=== PATIENT | female | born 1940 | race Caucasian/White ===

== ENCOUNTER 2016-08-29 23:45 | Inpatient (IN) | payer MEDICARE, OTHER ==
[2016-08-26 16:47] LABS: ASCORBIC ACID (UR NOT ORDER) 40 (NEG); BILIRUBIN, URINE NEGATIVE (NEG); KETONE, URINE NEGATIVE (NEG)
--- NOTE | ~2016-08-29 | HP ---
History And Physical [id number] [place]. [address] NAME: RAFA KURTZ : 44 STATUS : ADM Fredrick PAT#: [id number] AGE: 76 ADM/REG DATE : 08/29/16 MR#: [id number] REPORT SERV DATE: 08/30/16 DICTATED BY: MARSHAL HALL DATE: 08/30/16 REPORT STATUS : Draft TRANSCRIBED BY: MODZee DATE: 08/30/16 DATE OF ADMISSION: 08/29/2016 CHIEF COMPLAINT: Shortness of breath and bladder infection. HISTORY OF PRESENT ILLNESS: This is a 76-year-old female with a history of chronic respiratory failure, COPD, obstructive sleep apnea, coronary artery disease and other medical problems, who presents to the emergency room at [facility]. History is obtained from the patient, her daughter and son who are at bedside, and reviewing data available on the [employer] system. According to available data, Mrs. Kurtz was recently admitted and discharged from [facility] on last Friday. Since then, she had been home, became progressively more short of breath, had an intractable cough, and she called her primary care physician today and was asked to go to the emergency room here for evaluation. In the emergency room, she was found to have ESBL Klebsiella urinary tract infection sensitive only to amikacin, meropenem, and Zosyn. Hospitalist Service was asked to admit her for further evaluation and treatment. At the time of my evaluation, she denied any chest pain or palpitations. She had no orthopnea. She had a cough, which was essentially nonproductive. No hemoptysis, night sweats, or weight loss. She has not had any recent falls or loss of consciousness. No fevers or chills recently. No nausea, vomiting, diarrhea. No history of recent hematemesis, hematochezia, or hematuria. PAST MEDICAL HISTORY: Significant for history of coronary artery disease with pacemaker placement, history of COPD, chronic respiratory failure, obstructive sleep apnea on BiPAP therapy. She has history of diabetes mellitus, hypothyroidism, and no history of congestive heart failure according to recent echocardiogram read by Dr. Raghu Christian. She had normal ejection fraction. No diastolic dysfunction. No pulmonary hypertension. SOCIAL HISTORY: She does not smoke, drink, or use recreational drugs. FAMILY HISTORY: Noncontributory. MEDICATIONS: At home were reviewed by me in the chart today and reordered by me. REVIEW OF SYSTEMS: As in history of present illness, all other systems were reviewed in detail and quite unremarkable. PHYSICAL EXAMINATION: GENERAL: This is a pleasant 76-year-old, in mild distress due to her shortness of breath. HEENT: Head appears to be atraumatic, normocephalic. She is alert, awake, oriented to time, place, and person. Her pupils are equal, reacting to light and accommodating. History And Physical [address] [address] NAME: RAFA KURTZ : 42 STATUS : ADM Fredrick PAT#: [id number] AGE: 76 ADM/REG DATE : 08/29/16 MR#: [id number] REPORT SERV DATE: 08/30/16 DICTATED BY: MARSHAL HALL DATE: 08/30/16 REPORT STATUS : Draft TRANSCRIBED BY: SONIDO DATE: 08/30/16 External ocular muscles are intact. Membranes are moist and pink. Sclerae are nonicteric. NECK: Supple with no jugular venous distention, lymphadenopathy, or thyromegaly. LUNGS: Clear to auscultation with no wheezes, rubs, or crackles. HEART: Heart sounds were regular with no murmurs, rubs, or gallops. ABDOMEN: Soft, nontender. Bowel sounds are present. EXTREMITIES: Showed no cyanosis, clubbing, or edema. NEUROLOGIC: Grossly intact. No focal sensory or motor deficits. Higher functions appeared intact. VITAL SIGNS: Her vital signs today showed a temperature of 98.8, pulse 68, respirations 30- 35 a minute, blood pressure was 162/44, oxygen saturations were 95% breathing 4 L of oxygen via nasal cannula. LABORATORY DATA: Reviewed on the [employer] system showed a pH of 7.49 on arterial blood gas, pCO2 was 40, PO2 was 72 and bicarb was 29.8, this was on 4 L of oxygen via nasal cannula. A CBC was essentially within normal limits, but had a blood glucose of 305. Alkaline phosphatase was 146 today. ALT and AST were within normal limits. Troponin was 0.02 and BNP was 86.6. CBC showed a normal white blood cell count of 6900, hemoglobin was 11.1, hematocrit 34.4, and platelet count was down to 87,000. Urinalysis showed large leukocyte esterase, nitrite was negative. There were 130 wbc's and many bacteria. Films of the chest x-ray were reviewed by me on the PACS today and interpreted by me. There are no lobar consolidations or pleural effusion seen today. A 12-lead EKG done in the emergency room was reviewed and interpreted by me. There is paced rhythm at a rate of [address]- T changes. There is QTc prolongation. IMPRESSION: 1. Dyspnea. 2. Urinary tract infection with Klebsiella ESBL. 3. Hypertension. 4. Diabetes mellitus with hyperglycemia. 5. Hypothyroidism. 6. Chronic obstructive pulmonary disease with exacerbation. 7. Obstructive sleep apnea on BiPAP therapy. 8. Coronary artery disease with pacemaker placement. 9. Hypothyroidism. PLAN: We will admit Mrs. Kurtz to the Hospitalist Service with defensive monitoring for a 24-hour observation. After cultures are drawn, we will start her on empiric IV antibiotics. Urine sensitivities done on showed ESBL Klebsiella pneumonia sensitive to only amikacin, meropenem, and Zosyn. We will have to admit her for intravenous IV antibiotics at this time. We will go ahead and consult Infectious Disease to see her in the morning. Meanwhile, we will start her on NovoLog insulin given subcutaneously per sliding scale for blood sugar control. Check her A1c. We will also check her TSH and control replacement therapy. She will be on IV fluids for volume resuscitation while here as well. We will start her back on her home medications for blood pressure control and provide hydralazine intravenously on an as-needed basis. For her dyspnea and chronic respiratory failure along with COPD exacerbation, we will start her on bronchodilator treatments and continue supplemental oxygen therapy. She has no congestive heart failure per recent echocardiogram. History And Physical [address] [address] NAME: RAFA KURTZ : 44 STATUS : ADM Fredrick PAT#: [id number] AGE: 76 ADM/REG DATE : 08/29/16 MR#: [id number] REPORT SERV DATE: 08/30/16 DICTATED BY: MARSHAL HALL DATE: 08/30/16 REPORT STATUS : Draft TRANSCRIBED BY: MODL DATE: 08/30/16 No evidence of pulmonary hypertension. We will also place her on unfractionated heparin for DVT prophylaxis while here. I have discussed the above plans with the patient and her family. Questions were answered and they are agreeable to the above recommendations. Hospitalist Service will be following her during her stay here. KAMILLA Marshal Hall M.D. / [id number] CC: MD Ney Rodriguez II, M.D.
--- NOTE | ~2016-08-29 | DS ---
Discharge Summary [facility] [address] [place]. [address] NAME: RAFA KURTZ : 44 STATUS : ADM IN [facility]#: [id number] AGE: 76 ADM/REG DATE : 08/30/16 MR#: [id number] REPORT SERV DATE: 09/03/16 DICTATED BY: MICHAEL FRIAS II DATE: 09/02/16 REPORT STATUS : Draft TRANSCRIBED BY: MODL DATE: 09/02/16 ADMISSION DATE: 08/29/2016 DISCHARGE DATE: 09/02/2016 DISCHARGE DIAGNOSES: 1. Recurrent urinary tract infection with multidrug resistant Klebsiella pneumonia and Pseudomonas. 2. Vaginal candidiasis. 3. Chronic obstructive pulmonary disease, O2 dependent on 2 L at home. 4. Obstructive sleep apnea, on home BiPAP. 5. Diabetes mellitus type 2. 6. Chronic systolic congestive heart failure. 7. Chronic pain and debility. BRIEF HISTORY OF PRESENT ILLNESS: The patient is a 76-year-old female with the above history, who presented to [facility] due to shortness of breath and a bladder infection. For detailed history and physical examination, please see Dr. Fan's note from 08/29/2016. On admission, the patient actually had a prior urine culture from 08/26/2016 which showed Klebsiella pneumonia, ESBL, and Pseudomonas with only IV options, so she was subsequently admitted for treatment of UTI. For detailed history and physical examination, please see Dr. Fan's note from 08/29/2016. HOSPITAL COURSE: On admission, her UA actually showed large leukocyte esterase and 130 white blood cells with many bacteria. She did not however appear septic with a white count of only 6.9, afebrile, and vitals were fairly unremarkable. She was somewhat short of breath, but on her home rate of 2 L nasal cannula lungs sounded clear and chest x-ray showed chronic interstitial lung disease plus or minus a component of mild pulmonary edema. BNP was only 86 and she was continued on her home medications. She was initially started on Zosyn, but the Pseudomonas was intermediately sensitive to Zosyn, so meropenem was started. The patient's urine culture from 08/30/2016 actually came back with just Klebsiella pneumonia and no Pseudomonas, only sensitive to meropenem and amikacin. The patient was discussed with Dr. Fuller with Infectious Disease and given her multiple prior recurrences with the same organism she may have some component of colonization though no structural abnormality noted on prior CT scans. Given multiple recurrences we decided on a prolonged course of ertapenem to complete 10 days. Otherwise, she is at her baseline. Her other chronic medical conditions are stable and she is continued on her home medications. She is otherwise fairly debilitated and had been planning on going to [facility]. PT amelia showed she will benefit from SNF, so Case Management is currently arranging subacute rehab at [facility]. She will finish out six more days of ertapenem. DISCHARGE MEDICATIONS: 1. Aspirin 81 mg p.o. daily. 2. Atorvastatin 10 mg p.o. q.h.s. 3. Tessalon 200 mg p.o. t.i.d. p.r.n. cough. 4. Coreg 6.25 mg p.o. b.i.d. 5. Caltrate 600 mg p.o. daily. Discharge Summary [address] [address] NAME: RAFA KURTZ : 44 STATUS : ADM IN [facility]#: [id number] AGE: 76 ADM/REG DATE : 08/30/16 MR#: [id number] REPORT SERV DATE: 09/03/16 DICTATED BY: MICHAEL FRIAS II DATE: 09/02/16 REPORT STATUS : Draft TRANSCRIBED BY: SONIDO DATE: 09/02/16 6. Vitamin D3, 5000 units p.o. daily. 7. Neurontin 600 mg p.o. q.h.s. 8. Levemir 65 units subcu b.i.d. 9. NovoLog aspart level 3 sliding scale plus 20 units subcu t.i.d. a.c. 10.Synthroid 75 mcg p.o. daily. 11.Lisinopril 20 mg p.o. daily. 12.Magnesium oxide 400 mg p.o. daily. 13.Super B complex one tablet p.o. daily. 14.K-Dur 20 mEq p.o. daily. 15.Zoloft 100 mg p.o. daily. 16.Tocopherol 400 units p.o. daily. 17.Desyrel 50 mg p.o. q.h.s. 18.Macrodantin 50 mg p.o. daily. 19.Ativan 0.5 mg p.o. b.i.d. p.r.n. anxiety. 20.Phenergan 12.5 mg p.o. q.6 hours p.r.n. nausea. 21.Lasix 40 mg p.o. b.i.d. 22.Percocet 7.5/325 mg p.o. t.i.d. p.r.n. pain. 23.Cinnamon bark oral supplement. 24.PreserVision cap b.i.d. 25.Biotin 10 mg p.o. daily. 26.Ertapenem 1 g IV x6 more days. DISCHARGE INSTRUCTIONS: The patient will be discharged to [facility] for further management. DICTATED BY: Michael Frias II, MD JEG/MODZee Michael Frias II, MD / [id number] CC: MD Ney Rodriguez II, M.D.
--- NOTE | ~2016-08-29 | DS ---
Discharge Summary [address] [place]. [address] NAME: RAFA KURTZ : 44 STATUS : ADM IN [facility]#: [id number] AGE: 76 ADM/REG DATE : 08/30/16 MR#: [id number] REPORT SERV DATE: 09/03/16 DICTATED BY: PK DE LA ROSA DATE: 09/03/16 REPORT STATUS : Draft TRANSCRIBED BY: MODL DATE: 09/03/16 ADMISSION DATE: 08/30/2016 DISCHARGE DATE: 09/03/2016 DISCHARGE DIAGNOSES: 1. Urinary tract infection, positive Klebsiella pneumoniae and Pseudomonas. 2. Vaginal candidiasis. 3. Chronic obstructive pulmonary disease, O2 dependent 2 L at baseline. 4. Diabetes mellitus type 2, stable. 5. Chronic systolic congestive heart failure. 6. Chronic pain and debility. COURSE AT HOSPITAL STAY: Please refer to history and physical dictated on 08/29/[address] Fan for complete admission details, as well as initial discharge summary by Dr. Molina on 09/02/2016. This patient is a 76-year-old female, who presented with the above history. The patient stated upon admission that she was having increased shortness of breath and believed to have a bladder infection. As noted above, the patient's urine was positive Klebsiella pneumoniae and Pseudomonas. The patient was believed to be discharged on 09/02/2016 due to insurance. Due to the patient's insurance, discharge was delayed till 09/03/2016. Please refer to discharge summary by Dr. Humphrey Molina regarding details. DISCHARGE MEDICATIONS: 1. Aspirin 81 mg one p.o. daily. 2. Lipitor 10 mg one p.o. at bedtime. 3. Tessalon Perles 200 mg p.o. three times daily. 4. Coreg 6.25 mg p.o. twice daily. 5. Caltrate 600 mg plus vitamin D 600 mg p.o. daily. 6. Vitamin D3 5000 units p.o. every evening. 7. Neurontin 300 mg one p.o. at bedtime. 8. Levemir 65 units subcutaneous twice daily. 9. NovoLog 20 units subcutaneous with meals. 10.Synthroid 75 mcg tablet p.o. daily. 11.Lisinopril 20 mg one p.o. daily. 12.Magnesium oxide 400 mg one p.o. daily. 13.B complex vitamin one tab every morning. 14.Potassium 20 mEq p.o. daily. 15.Zoloft 100 mg one p.o. daily. 16.Vitamin E 400 units p.o. every morning. 17.Trazodone 50 mg one p.o. at bedtime. 18.Macrodantin 50 mg one p.o. daily. 19.Ativan 0.5 mg p.o. twice daily p.r.n. for anxiety. 20.Phenergan 12.5 mg p.o. every six hours p.r.n. for nausea. Discharge Summary [address] [place]. [address] NAME: RAFA KURTZ : 44 STATUS : ADM IN [facility]#: [id number] AGE: 76 ADM/REG DATE : 08/30/16 MR#: [id number] REPORT SERV DATE: 09/03/16 DICTATED BY: PK DE LA ROSA DATE: 09/03/16 REPORT STATUS : Draft TRANSCRIBED BY: SONIDO DATE: 09/03/16 21.Lasix 40 mg one p.o. twice daily. 22.Percocet 7.5/325 p.o. three times daily p.r.n. 23.Cinnamon oral supplement 1000 mg p.o. every morning. 24.Vitamin A, vitamin C, vitamin E, zinc, copper tab one p.o. every day. 25.Biotin 10 mg one p.o. daily. This discharge took greater than 30 minutes due to working with patient regarding medications and case management associate and staff. DICTATED BY: Pk De La Rosa NP [facility] Pk De La Rosa NP / [id number] CC: Susanna Pugh M.D.
[2016-08-29 23:34] LABS: ALLENS TEST Pos; DEVICE NC; HCO3 (ACTUAL BICARBONATE) 29.8 MEQ/L (23-27); INSTRUMENT SERIAL # 8087; OPERATOR ID 17589; PCO2 (CO2 TENSION) 40 MMHG (35-45); PO2 (O2 TENSION) 72 MMHG (79-93); SAMPLE Arterial; pH 7.49 (7.37-7.43)
[~2016-08-29 23:45] MED LIST: ACETSUP650 PR; AMB10 PO; APIDRA PO; ASAB PO; ATV.5 PEG; BISR PR; BUM1 PEG; CALCIUM OTC PO; CALCIUM PO; CEFT5 PO; CELEBREX2 PO; CIP2 PO; CONSTULOSE PEG; COREG12 PO; COREG6 PEG; COREG6 PO; DUONEB INH; DURA100 TOP; ENDOCET1 TA3 PO; ESTRACE VAG0.1 MG/GM V; ESTRACE VAGIN42.5 GM TOP; HEPA50006 SC; HUMALOG SC; KCL20UDL PEG; KDUR20 PO; KLOR-CON M2020 MEQ PO; L40 PO; L80 PO; LANTUS SC; LEVOTHYROXIN75 MCG PO; LEXAPRO10 PO; LINZESS 290 M290 MCG PO; LIQUITEARS OPH; LOFIBRA134 MG PO; LORT7 PO; LORTAB10 PO; MAGNESIUM OXIDE PEG; MAGOX4 PO; MICRO-K8 MEQ PO; MIRALAXPKT PEG; MIRALAXPKT PO; MOMUD PEG; MSCONT15 PO; MULTIVITAMI1 PO; NEUR300 PEG; NEUR300 PO; NEUR400 PO; NEUR600 PO; NOVOLOG SC; NOVOLOGMIX SC; NOVOPEN SC; OS500+D PO; PERCOCET1 TA2 PO; PERCOCET1 TA4 PO; PREDFORTE OPH; PRESER VISION; PRESERVISION A1 EAC1 PO; PRILO PO; PRIN10 PO; PRIN20 PEG; PRIN20 PO; PROBIOTIC PO; PROTONIX PEG; PROVENTSOL INH; REGL PEG; ROCEPH IV/IM; SEROQUEL25 PEG; SYN075 PEG; SYN075 PO; TEARS NATURA OPH; THERA MULTI1 ML PEG; TRAZ50 PEG; TRAZ50 PO; TRICOR145 PO; UNABLE TO RECALL; VITAMIN B PO; VITAMIN C OTC PO; VITAMIN C PO; VITAMIN C100 MG PO; VITAMIN C500 M3 PO; VITAMIN D OTC PO; VITAMIN E OTC PO; VITAMIN E PO; ZOCOR20 PO; ZOFRAN ODT4 MG SL; ZOL100 PEG; ZOL100 PO; [UNRECOGNIZED DRUG - OTHER] PO
[2016-08-30 00:16] LABS: BASOPHILS 0.3 %; BASOPHILS ABSOLUTE 0.02 10/3/uL (0.0-0.16); EOSINOPHILS ABSOLUTE 0.28 10/3/uL (0.0-0.53); ER CBC TAT 0 Hrs 00 Mins; HEMATOCRIT 34.4 % (36.0-48.0); HEMOGLOBIN 11.1 g/dL (12.0-16.0); IMMATURE GRANULOCYTES 0.6 %; IMMATURE GRANULOCYTES ABSOLUTE 0.04 10/3/uL (0.0-0.11); LYMPHOCYTES 29.1 %; LYMPHOCYTES ABSOLUTE 2.02 10/3/uL (0.67-4.30); MEAN CORPUS HGB CONC 32.3 g/dL (32.0-36.0); MEAN CORPUSCULAR HEMOGLOB 27.5 pg (26.0-34.0); MEAN CORPUSCULAR VOLUME 85.1 fL (80-100); MEAN PLATELET VOLUME 11.4 fL (9.2-13.0); MONOCYTES 7.2 %; NEUTROPHILS 58.8 %; NEUTROPHILS ABSOLUTE 4.08 10/3/uL (2.02-8.40); PLATELET COUNT 87 10/3/uL (150-400); RBC DISTRIBUTION WIDTH 15.6 % (12.0-16.0); RED CELL COUNT 4.04 10/6/uL (4.0-5.6); WHITE BLOOD CELLS 6.9 10/3/uL (4.5-10.5)
[2016-08-30 00:17] LABS: MANUAL DIFF NO %
[2016-08-30 00:23] LABS: INTERNATIONAL NORMAL RATI 1.1 UNITS (-); PROTIME (NOT ORD) 14.5 SEC (12.0-14.5)
[2016-08-30 00:32] LABS: ALBUMIN 2.9 G/DL (3.5-5.0); BUN (BLOOD UREA NITROGEN) 15 MG/DL (6-23); CHEST PAIN PROFILE TAT 0 Hrs 00 Mins; CHLORIDE, SERUM 100 MMOL/L (96-112); CREATININE 0.82 MG/DL (0.55-1.02); DIRECT BILIRUBIN 0.1 MG/DL (0.0-0.4); GFR AFRICAN AMERICAN 82 ML/MIN (>=60); GFR NON AFRICAN AMERICAN 70 ML/MIN (>=60); GLUCOSE, SERUM 305 MG/DL (60-99); INDIRECT BILIRUBIN(NOT ORDER) 0.4 MG/DL (0.1-0.9); POTASSIUM, SERUM 3.9 MMOL/L (3.5-5.3); SGOT(AST) 17 U/L (5-40); SGPT(ALT) 20 U/L (5-65); SODIUM, SERUM 140 MMOL/L (135-148); TOTAL BILIRUBIN 0.5 MG/DL (0-1.2); TOTAL PROTEIN 6.6 G/DL (6.0-8.5); TROPONIN I 0.02 NG/ML (<0.05)
[2016-08-30 00:35] LABS: ALKALINE PHOSPHATASE 146 U/L (45-117); CO2 (CARBON DIOXIDE) 34 MMOL/L (24-34)
[2016-08-30 02:13] LABS: ASCORBIC ACID (UR NOT ORDER) 40 (NEG); BILIRUBIN, URINE NEGATIVE (NEG); ER URINALYSIS TAT 0 Hrs 15 Mins; KETONE, URINE NEGATIVE (NEG); LEUKOCYTE ESTERASE(NOT OR LARGE (NEG); NITRITE (URINE) NEG (NEG); WBC (NOT ORDERED) (RFLEX) 130 (0-5)
[2016-08-30] MEDS ORDERED: L40 PO (02:22)
[2016-08-30] MEDS ORDERED: SYN075 PO (02:22)
[2016-08-30] MEDS ORDERED: ZESTRIL20 MG PO (02:22)
[2016-08-30] MEDS ORDERED: COREG6 PO (02:22)
[2016-08-30] MEDS ORDERED: KDUR20 PO (02:23)
[2016-08-30] MEDS ORDERED: MAGOX4 PO (02:23)
[2016-08-30] MEDS ORDERED: ZOL100 PO (02:23)
[2016-08-30] MEDS ORDERED: NEUR300 PO (02:23)
[2016-08-30] MEDS ORDERED: LIPITOR10 PO (02:24)
[2016-08-30] MEDS ORDERED: INSNOV7030 SC (02:24)
[2016-08-30] MEDS ORDERED: TRAZ50 PO (02:25)
[2016-08-30] MEDS ORDERED: PERCOCET 7.5/321 TAB PO (02:27)
[2016-08-30] MEDS ORDERED: HALF81 PO (02:27)
[2016-08-30] MEDS ORDERED: VITE PO (02:27)
[2016-08-30] MEDS ORDERED: BIOTIN10 MG PO (02:28)
[2016-08-30] MEDS ORDERED: CINNAMONPO PO (02:28)
[2016-08-30] MEDS ORDERED: SUPER B COMP PO (02:28)
[2016-08-30] MEDS ORDERED: PRESERVISION A1 EACH PO (02:28)
[2016-08-30] MEDS ORDERED: CALTRA600D PO (02:28)
[2016-08-30] MEDS ORDERED: VITAMIN D31000 UNIT PO (02:28)
[2016-08-30] MEDS ORDERED: LEVEMIR SC (02:45)
[2016-08-30] MEDS ORDERED: APIDRA SC (02:46)
[2016-08-30] MEDS ORDERED: ATV.5 PO (02:51)
[2016-08-30] MEDS ORDERED: *UNABLE3 (02:54)
[2016-08-30 06:19] LABS: BASOPHILS 0.3 %; BASOPHILS ABSOLUTE 0.02 10/3/uL (0.0-0.16); EOSINOPHILS 4.3 %; EOSINOPHILS ABSOLUTE 0.31 10/3/uL (0.0-0.53); HEMATOCRIT 34.2 % (36.0-48.0); HEMOGLOBIN 11.1 g/dL (12.0-16.0); IMMATURE GRANULOCYTES 0.4 %; IMMATURE GRANULOCYTES ABSOLUTE 0.03 10/3/uL (0.0-0.11); LYMPHOCYTES 35.9 %; LYMPHOCYTES ABSOLUTE 2.57 10/3/uL (0.67-4.30); MEAN CORPUS HGB CONC 32.5 g/dL (32.0-36.0); MEAN CORPUSCULAR HEMOGLOB 27.7 pg (26.0-34.0); MEAN CORPUSCULAR VOLUME 85.3 fL (80-100); MEAN PLATELET VOLUME 11.5 fL (9.2-13.0); MONOCYTES 7.3 %; MONOCYTES ABSOLUTE 0.52 10/3/uL (0.21-1.20); NEUTROPHILS 51.8 %; NEUTROPHILS ABSOLUTE 3.71 10/3/uL (2.02-8.40); PLATELET COUNT 95 10/3/uL (150-400); RBC DISTRIBUTION WIDTH 15.8 % (12.0-16.0); RED CELL COUNT 4.01 10/6/uL (4.0-5.6); WHITE BLOOD CELLS 7.2 10/3/uL (4.5-10.5)
[2016-08-30 06:24] LABS: MANUAL DIFF NO %
[2016-08-30 06:36] LABS: BUN (BLOOD UREA NITROGEN) 15 MG/DL (6-23); CALCIUM, SERUM 9.5 MG/DL (8.5-10.4); CHLORIDE, SERUM 104 MMOL/L (96-112); CO2 (CARBON DIOXIDE) 31 MMOL/L (24-34); CREATININE 0.83 MG/DL (0.55-1.02); GFR AFRICAN AMERICAN 81 ML/MIN (>=60); GFR NON AFRICAN AMERICAN 69 ML/MIN (>=60); GLUCOSE, SERUM 246 MG/DL (60-99); POTASSIUM, SERUM 3.9 MMOL/L (3.5-5.3); SODIUM, SERUM 140 MMOL/L (135-148)
[2016-08-30 06:37] LABS: PHOSPHORUS, SERUM 3.1 MG/DL (2.5-4.5)
[2016-08-30] MEDS ORDERED: LYRICA75 PO (08:38)
[2016-08-30] MEDS ORDERED: MACRO50B PO (08:39)
[2016-08-30] MEDS ORDERED: PRESERVISION A1 EAC1 PO (08:40)
[2016-08-30] MEDS ORDERED: MIRALAX POWDER1 PKT PO (08:40)
[2016-08-31 04:53] LABS: BASOPHILS 0.4 %; BASOPHILS ABSOLUTE 0.02 10/3/uL (0.0-0.16); EOSINOPHILS 5.1 %; EOSINOPHILS ABSOLUTE 0.29 10/3/uL (0.0-0.53); HEMATOCRIT 35.2 % (36.0-48.0); HEMOGLOBIN 11.4 g/dL (12.0-16.0); IMMATURE GRANULOCYTES 0.4 %; IMMATURE GRANULOCYTES ABSOLUTE 0.02 10/3/uL (0.0-0.11); LYMPHOCYTES 34.7 %; LYMPHOCYTES ABSOLUTE 1.98 10/3/uL (0.67-4.30); MANUAL DIFF NO %; MEAN CORPUS HGB CONC 32.4 g/dL (32.0-36.0); MEAN CORPUSCULAR HEMOGLOB 28.1 pg (26.0-34.0); MEAN CORPUSCULAR VOLUME 86.9 fL (80-100); MEAN PLATELET VOLUME 11.5 fL (9.2-13.0); MONOCYTES 5.6 %; MONOCYTES ABSOLUTE 0.32 10/3/uL (0.21-1.20); NEUTROPHILS 53.8 %; NEUTROPHILS ABSOLUTE 3.08 10/3/uL (2.02-8.40); PLATELET COUNT 84 10/3/uL (150-400); RED CELL COUNT 4.05 10/6/uL (4.0-5.6); WHITE BLOOD CELLS 5.7 10/3/uL (4.5-10.5)
[2016-08-31 04:56] LABS: BUN (BLOOD UREA NITROGEN) 16 MG/DL (6-23); CALCIUM, SERUM 9.5 MG/DL (8.5-10.4); CHLORIDE, SERUM 109 MMOL/L (96-112); CO2 (CARBON DIOXIDE) 31 MMOL/L (24-34); CREATININE 0.68 MG/DL (0.55-1.02); GFR AFRICAN AMERICAN 100 ML/MIN (>=60); GFR NON AFRICAN AMERICAN 86 ML/MIN (>=60); GLUCOSE, SERUM 130 MG/DL (60-99); POTASSIUM, SERUM 4.2 MMOL/L (3.5-5.3); SODIUM, SERUM 146 MMOL/L (135-148)
== END 2016-09-03 16:24 | DRG 690 ==
LOC: ER 23:45 → 4EA 23:57
PROVIDERS: Internal Medicine; Internal Medicine Pulmonary Disease; Specialist
DX: N39.0 Urinary tract infection, site not specified (principal); J84.9 Interstitial pulmonary disease, unspecified; J96.10 Chronic respiratory failure, unspecified whether with hypoxia or hypercapnia; I50.22 Chronic systolic (congestive) heart failure; I11.0 Hypertensive heart disease with heart failure; J44.9 Chronic obstructive pulmonary disease, unspecified; Z99.81 Dependence on supplemental oxygen; B96.1 Klebsiella pneumoniae [K. pneumoniae] as the cause of diseases classified elsewhere; B96.5 Pseudomonas (aeruginosa) (mallei) (pseudomallei) as the cause of diseases classified elsewhere; B37.3 Candidiasis of vulva and vagina; G47.33 Obstructive sleep apnea (adult) (pediatric); E11.65 Type 2 diabetes mellitus with hyperglycemia
CPT/HCPCS: 36600; 71010; 80048; 80076; 81001; 82805; 82962; 83605; 83735; 83880; 84100; 84443; 84484; 85025; 85610; 85730; 87040; 87077; 87086; 87186; 87449; 93005; 94640; 96365; 96375; 97110-GP; 97116-GP; 97162-GP; 99285; A9270-GY; G8978-CL-GP; G8979-CK-GP; J0360; J2185; J2405; J2543